=== PATIENT | female | born 1990 | race Caucasian/White ===

== ENCOUNTER 2017-10-21 07:23 | Emergency (ER) | payer OTHER ==
[2017-10-21 07:31] VITALS: BP 134/67
[2017-10-21] MEDS ORDERED: TRAMADOL HCL 50 MG TABLET PO ONE (08:23)
--- NOTE | 2017-10-21 08:31 | ER Document Report ---
ED ENT - General Chief Complaint: Ear Pain Stated Complaint: EAR PAIN/VOMITING Time Seen by Provider: 10/21/17 07:43 Mode of Arrival: Ambulatory Information source: Patient - HPI Patient complains to provider of: Ear problem Onset: This morning Notes: Patient is here with complaints of right ear pain. She states that she woke up this morning with severe right ear pain. She has had a cold for approximately a week now. She complains of mild decreased hearing in the right ear. She states that when she gets up or moves around she has some dizziness has had a few episodes of nausea vomiting as well. Nothing makes the pain better. The pain seems to be worse when she swallows. Pain radiates down into her neck area. She denies any chest pain or shortness of breath. She denies any abdominal pain. She denies any blurred or loss vision. She denies any unilateral numbness, tingling, weakness. No injury to the head or the ear. No ear drainage. No fevers. No rash. No syncope. No blood thinners. She denies any other complaints at this time. - Related Data Allergies/Adverse Reactions: No Known Allergies Allergy (Unverified 10/21/17 07:25) Past Medical History - Social History Smoking Status: Never Smoker Frequency of alcohol use: Occasional Drug Abuse: None Family History: Reviewed & Not Pertinent Patient has suicidal ideation: No Patient has homicidal ideation: No Renal/ Medical History: Denies: Hx Peritoneal Dialysis Past Surgical History: Reports: Hx Section Review of Systems - Review of Systems -: Yes All other systems reviewed and negative Physical Exam - Vital signs Vitals: Temp Pulse Resp BP Pulse Ox 97.7 F 65 18 134/67 H 100 10/21/17 07:30 10/21/17 07:30 10/21/17 07:30 10/21/17 07:30 10/21/17 07:30 - Notes Notes: GENERAL: alert, cooperative, nontoxic, no distress. HEAD: normocephalic, atraumatic EYES: conjunctiva pink without discharge, no external redness or swelling. Pupils are equal, round, reactive to light. EARS: no external swelling, no external redness. Effusion behind the left TM with normal landmarks and no erythema. No perforation. Right TM with large amount of clear fluid with bulging TM. There is no erythema or perforation. Canals are clear with no redness swelling or drainage. Mastoids are normal with no tenderness or redness. NOSE: atraumatic, no external swelling MOUTH/THROAT: mucous membranes moist and pink, posterior pharynx without erythema, swelling, exudate. No trismus or drooling. NECK: soft, supple, full range of motion, no meningismus. CHEST: no distress, lungs clear and equal throughout. No wheezing, rales, rhonchi. CARDIAC: regular rate and rhythm, no murmur, normal capillary refill, normal pulses. No peripheral edema noted. BACK: full range of motion, no CVA tenderness. EXTREMITIES: full range of motion of all extremities. No redness, no swelling. NEURO: alert and oriented x 3, cranial nerves II through XII are grossly intact. Upper and lower extremities are equal throughout. Normal sensation. No focal deficits, full range of motion of all extremities. normal finger to nose. PYSCH: appropriate mood, affect. Patient is cooperative. SKIN: pink, warm, dry, no rash. Course - Re-evaluation Re-evalutation: 10/21/17 08:29 Patient is nontoxic appearing with stable vitals. The patient is here with complaints of right ear pain which started this morning. She has had URI symptoms for about a week now. She has some mild decreased hearing in the right ear. On exam she is noted to have a clear effusion with bulging TM but no redness or signs of infection. Patient is likely experiencing some eustachian tube dysfunction secondary to her URI. She is afebrile. There is no signs of mastoiditis. No sign of malignant otitis externa. She has a nonfocal neurological exam. She is likely experiencing some mild vertigo secondary to her effusion. She has dizziness but only with sudden position changes. She has a normal cerebellar exam. This point the patient will be discharged home with Claritin-D, Flonase, tramadol, Antivert. Follow-up if not improving in the next 3-5 days, sooner for increasing pain, fever, redness, constant dizziness, numbness, tingling, weakness, or for any further concerns. The patient is noted to have elevated blood pressure during today's emergency department visit. The patient was informed of this finding. The patient was instructed that this may be related to pre-hypertension and requires further evaluation with a primary care provider. The patient has no hypertensive symptoms at this time. The patient's emergency department workup and current diagnosis were explained to the patient and or family. Follow-up instructions were provided. Medications if prescribed were discussed. Instructions for when to return to the emergency department including specific worrisome symptoms were discussed with the patient and/or family. - Vital Signs Vital signs: Temp Pulse Resp BP Pulse Ox 97.7 F 65 18 134/67 H 100 10/21/17 07:30 10/21/17 07:30 10/21/17 07:30 10/21/17 07:30 10/21/17 07:30 Discharge - Discharge Clinical Impression: Vertigo Eustachian tube disorder Qualifiers: Laterality: right Qualified Code(s): H69.91 - Unspecified Eustachian tube disorder, right ear Condition: Stable Disposition: HOME, SELF-CARE Instructions: Upper Respiratory Illness ([facility]), Vertigo ([facility]) Additional Instructions: Take medications as prescribed. Drink plenty of fluids. Follow-up if not better in 3-5 days, sooner for increasing pain, fever, redness or swelling around the outside of the ear, severe headache, constant dizziness, numbness, tingling, weakness, any further concerns. Your blood pressure was elevated during today's visit. Have this rechecked with your doctor. The medication you were prescribed today may cause drowsiness. Do not drive or operate heavy machinery while taking this medication. Prescriptions: Fluticasone Propionate [Flonase Nasal [place] 50 Mcg/[place] 16 gm] 1 spray NASL Q12 #1 inhaler Loratadine/Pseudoephedrine Sul [Claritin-D 12 Hour Tablet] 1 each PO BID PRN # 14 tab.sr.12h PRN Reason: Meclizine HCl [Antivert 25 mg Tablet] 25 mg PO TID PRN #21 tablet PRN Reason: Tramadol HCl 50 mg PO TID PRN #10 tablet PRN Reason: Forms: Elevated Blood Pressure, Smoking Cessation Education Referrals: [facility] [Provider Group] - Follow up as needed
== END 2017-10-21 08:49 | disposition home or self-care (01) ==
LOC: ER 07:23
DX: H69.91 Unspecified Eustachian tube disorder, right ear (principal); R42 Dizziness and giddiness; H92.01 Otalgia, right ear; R11.2 Nausea with vomiting, unspecified; J00 Acute nasopharyngitis [common cold]; R03.0 Elevated blood-pressure reading, without diagnosis of hypertension
CPT/HCPCS: 99282

== ENCOUNTER 2017-10-23 20:02 | Emergency (ER) | payer OTHER ==
[2017-10-23 20:14] VITALS: BP 131/70
[2017-10-23] MEDS ORDERED: AMOXICILLIN TRIHYDRATE 500 MG CAPSULE PO ONE (20:34)
[2017-10-23] MEDS ORDERED: NEOMY SULF/POLYMYX B SULF/HC OTIC SUSP 10 ML AU ONE (20:35)
--- NOTE | 2017-10-23 20:40 | ER Document Report ---
ED ENT - General Chief Complaint: Ear Pain Stated Complaint: EAR PAIN Time Seen by Provider: 10/23/17 20:27 Mode of Arrival: Ambulatory Information source: Patient, [facility] Records Notes: This 26-year-old female patient comes emergency room complaining of problems with her ears. She was seen here 2 days ago with a right ear pain and upper respiratory tract infection for the past week. She also at that time had some positional dizziness. Reviewing the chart show she was diagnosed with viral URI and right eustachian tube dysfunction. The patient was put on Claritin-D, Flonase, meclizine and tramadol. She reports waking up yesterday morning feeling a leaking fluid sensation in her right ear and the pain was better. She did notice blood and pus later. Later she noticed the same thing from the left ear with blood and pus. At this time her hearing is decreased in both ears. Patient does admit to using Q-tips to clean both of her ear several times daily all the time suggesting an obsessive-compulsive problem. She admits that when she was cleaning her ears with the current drainage that she would note some blood and pus on the Q-tips. TRAVEL OUTSIDE OF THE [place] IN LAST 30 DAYS: No - Related Data Allergies/Adverse Reactions: No Known Allergies Allergy (Unverified 10/21/17 07:25) Past Medical History - General Information source: Patient, [facility] Records - Social History Smoking Status: Never Smoker Cigarette use (# per day): No Chew tobacco use (# tins/day): No Smoking Education Provided: No Frequency of alcohol use: Occasional Drug Abuse: None Occupation: Dictaphone Operator at [employer] Lives with: Family, Spouse/Significant other Family History: Reviewed & Not Pertinent Patient has suicidal ideation: No Patient has homicidal ideation: No - Medical History Medical History: Negative Past Surgical History: Reports: Hx Section Review of Systems - Review of Systems Constitutional: Other - Has felt hot and cold EENT: Ear pain, Nose congestion Cardiovascular: No symptoms reported Respiratory: Cough Gastrointestinal: No symptoms reported Genitourinary: No symptoms reported Musculoskeletal: No symptoms reported Skin: No symptoms reported Hematologic/Lymphatic: No symptoms reported Neurological/Psychological: No symptoms reported Physical Exam - Vital signs Vitals: Temp Pulse Resp BP Pulse Ox 98.6 F 92 16 131/70 H 96 10/23/17 20:10 10/23/17 20:10 10/23/17 20:10 10/23/17 20:10 10/23/17 20:10 Interpretation: Normal - General General appearance: Appears well, Alert In distress: None - HEENT Head: Normocephalic, Atraumatic Eyes: Normal Pupils: PERRL External canal: Normal Tympanic membrane: Bulging - Left TM is bulging with some erythema. There is no drainage noted at this time., Other - Right TM has erythema with bright red blood flame like areas suggesting small hemorrhages. The TM is a little wrinkled which would be consistent with her description of a TM perforation. There is no drainage noted at this time. - Respiratory Respiratory status: No respiratory distress Breath sounds: Normal - Cardiovascular Rhythm: Regular - Abdominal Inspection: Normal - Back Back: Normal - Extremities General upper extremity: Normal inspection General lower extremity: Normal inspection - Neurological Neuro grossly intact: Yes - Psychological Associated symptoms: Normal affect, Normal mood - Skin Skin Temperature: Warm Skin Moisture: Dry Skin Color: Normal Course - Vital Signs Vital signs: Temp Pulse Resp BP Pulse Ox 98.6 F 92 16 131/70 H 96 10/23/17 20:10 10/23/17 20:10 10/23/17 20:10 10/23/17 20:10 10/23/17 20:10 Discharge - Discharge Clinical Impression: Bilateral otitis media with effusion Condition: Stable Disposition: HOME, SELF-CARE Additional Instructions: Otitis Media You have a middle ear infection (otitis media). This is usually a complication of a cold or sore throat. The middle ear cavity becomes filled with infection. Pressure and stretching of the ear drum cause pain. Antibiotics are required. A 10 day course is usually prescribed. A decongestant may be recommended if you have a "runny nose." You may need anesthetic drops or other pain medication. A follow-up exam may be recommended to make sure the infection has completely cleared. If the ear begins to drain, it means the ear drum has ruptured. This will usually heal spontaneously. However, it means you should keep the ear dry until re-examined by a doctor. Call the physician or return for examination at once if there is severe headache, stiff neck, confusion, increasing fever, or dizziness. You should improve significantly within two days. If you're not better, call the doctor. At this time your left eardrum is bulging and red, the right eardrum is not bulging but there is no drainage from it so the previous perforation may have sealed itself. Take the antibiotics as prescribed. Use the antibiotics eardrops dispensed--place 4 drops in each ear and place a cotton wick 4 times daily. If either ear begins to drain with a bloody discharge as before, continue to use the drops as prescribed, but do not put earwicks in. Instead lay on one side put the drops in and let them stay in the ear for 30 minutes or more before turning to the other side and repeating the process. Follow-up with your primary care provider or a local ENT doctor if not improving. RETURN TO THE EMERGENCY ROOM IF ANY NEW OR WORSENING SYMPTOMS. Prescriptions: Amoxicillin 1 tab PO TID #30 tab
== END 2017-10-23 20:45 | disposition home or self-care (01) ==
LOC: ER 20:02
DX: H65.93 Unspecified nonsuppurative otitis media, bilateral (principal); H92.01 Otalgia, right ear; H92.23 Otorrhagia, bilateral; H91.93 Unspecified hearing loss, bilateral
CPT/HCPCS: 99283; J3490

== ENCOUNTER 2018-06-08 12:26 | Emergency (ER) | payer OTHER ==
--- NOTE | 2018-06-08 13:18 | ER Document Report ---
ED Medical Screen (RME) - General Chief Complaint: Abdominal Pain Stated Complaint: LOWER ABDOMINAL PAIN,VOMITING Time Seen by Provider: 06/08/18 12:33 TRAVEL OUTSIDE OF THE [place] IN LAST 30 DAYS: No - Related Data Allergies/Adverse Reactions: No Known Allergies Allergy (Unverified 10/21/17 07:25) Past Medical History Renal/ Medical History: Denies: Hx Peritoneal Dialysis Past Surgical History: Reports: Hx Section Physical Exam - Vital signs Vitals: Temp Pulse Resp BP Pulse Ox 98.3 F 65 14 130/75 H 100 06/08/18 12:33 06/08/18 12:33 06/08/18 12:33 06/08/18 12:33 06/08/18 12:33 Course - Re-evaluation Re-evalutation: 06/08/18 13:17 27-year-old female presents for evaluation of the lower abdominal pain that sometimes causes her to vomit. Is been persistent and were the last several ounce. 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 We will initiate work with a transvaginal ultrasound as well as urine. We will defer further workup to secondary provider. I have seen and performed a rapid medical screening examination on this patient. This patient will require further evaluation and disposition determination by a secondary provider. - Vital Signs Vital signs: Temp Pulse Resp BP Pulse Ox 98.3 F 65 14 130/75 H 100 06/08/18 12:33 06/08/18 12:33 06/08/18 12:33 06/08/18 12:33 06/08/18 12:33
[2018-06-08 14:05] LABS: APPEARANCE,URINE CLEAR; BILIRUBIN,URINE NEGATIVE (NEGATIVE); COLOR,URINE STRAW; GLUCOSE, URINE NEGATIVE (NEGATIVE); KETONES,URINE TRACE mg/dL (NEGATIVE); LEUKOCYTE ESTERASE,URINE NEGATIVE (NEGATIVE); NITRITE,URINE NEGATIVE (NEGATIVE); PROTEIN,URINE NEGATIVE (NEGATIVE); URINE SPECIFIC GRAVITY 1.005; UROBILINOGEN,URINE NEGATIVE mg/dL (<2.0)
--- NOTE | 2018-06-08 14:25 | RADIOLOGY REPORT (SQ) ---
EXAM DESCRIPTION: U/S NON OB PEL TV W/DOPPLER COMPLETED DATE/TIME: 06/08/2018 2:11 pm REASON FOR STUDY: ovarian cysts and pain LMP 05/27/2018 COMPARISON: None. TECHNIQUE: Dynamic and static grayscale images acquired of the pelvis via transvaginal approach and recorded on PACS. Additional selected color Doppler and spectral images recorded. LIMITATIONS: None. FINDINGS: UTERUS: Contour normal. No mass. ENDOMETRIAL STRIPE: No focal or generalized thickening. No masses. CERVIX: 3.7 cm. No nabothian cysts. RIGHT OVARY AND DOPPLER: Ovary not seen. LEFT OVARY AND DOPPLER: Ovary not seen. FREE FLUID: None noted. OTHER: No other significant finding. MEASUREMENTS: UTERUS: 11.1 x 5.7 x 5.3 cm. ENDOMETRIAL STRIPE: 6 mm. RIGHT OVARY: Ovary not seen. LEFT OVARY: Ovary not seen. IMPRESSION: Normal uterus. The ovaries could not be seen. TECHNICAL DOCUMENTATION: JOB ID: [id number]- All Rights Reserved Rev-11/27 Reading location - IP/workstation name: [email or web address]
[2018-06-08] MEDS ORDERED: DIPHENHYDRAMINE HCL 50 MG/ML VIAL IV ONE (14:44)
[2018-06-08] MEDS ORDERED: PROCHLORPERAZINE EDISYLATE INJ 10 MG/2 ML VIAL IV ONE (14:44)
[2018-06-08] MEDS ORDERED: KETOROLAC TROMETHAMINE INJ/PF 30 MG/1 ML SDV IV ONE (14:44)
[2018-06-08] MEDS ORDERED: NORMAL SALINE 1000 ML 1,000 ML IV ONE (14:45)
--- NOTE | 2018-06-08 14:57 | ER Document Report ---
ED GI/ - General Chief Complaint: Abdominal Pain Stated Complaint: LOWER ABDOMINAL PAIN,VOMITING Time Seen by Provider: 06/08/18 12:33 Mode of Arrival: Ambulatory Information source: Patient Notes: 27-year-old female presented to ED for complaint of extreme lower abdominal pain times a week with nausea times a week vomiting off and on for 3 days 3 times a day. She states she is also had pelvic pain vaginal pain and vaginal discharge. TRAVEL OUTSIDE OF THE [place] IN LAST 30 DAYS: No - HPI Patient complains to provider of: Abdominal pain, Pelvic pain, Vaginal discharge , Vaginal pain Onset: Last week Timing/Duration: Intermittent Quality of pain: Cramping Severity at maximum: Moderate Severity in ED: Moderate Pain Level: 2 Location: LLQ, RLQ, Pelvis, Vaginal Vaginal bleeding (Compared to normal period): None Associated symptoms: Nausea, Odor - Pain lower abdominal pain, Vaginal discharge , Vomiting, Other Exacerbated by: Movement Relieved by: Denies Similar symptoms previously: Yes Recently seen / treated by doctor: No - Related Data Allergies/Adverse Reactions: No Known Allergies Allergy (Unverified 10/21/17 07:25) Past Medical History - General Information source: Patient - Social History Smoking Status: Never Smoker Chew tobacco use (# tins/day): No Smoking Education Provided: No Frequency of alcohol use: Social Drug Abuse: None 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[employer] Lives with: Spouse/Significant other Family History: Reviewed & Not Pertinent Patient has suicidal ideation: No Patient has homicidal ideation: No - Past Medical History Cardiac Medical History: Reports: None Pulmonary Medical History: Reports: None EENT Medical History: Reports: None Neurological Medical History: Reports: None Endocrine Medical History: Reports: None Renal/ Medical History: Reports: Hx Ovarian Cysts Malignancy Medical History: Reports: None GI Medical History: Reports: None Musculoskeletal Medical History: Reports None Skin Medical History: Reports None Psychiatric Medical History: Reports: None Traumatic Medical History: Reports: None Infectious Medical History: Reports: None Past Surgical History: Reports: Hx Section - Immunizations Immunizations up to date: Yes Hx Diphtheria, Pertussis, Tetanus Vaccination: Yes Review of Systems - Review of Systems Notes: REVIEW OF SYSTEMS: CONSTITUTIONAL : Denies fever, chills, or sweats. Denies recent illness. EENT: Denies eye, ear, throat, or mouth pain or symptoms. Denies nasal or sinus congestion or discharge. Denies throat, tongue, or mouth swelling or difficulty swallowing. CARDIOVASCULAR: Denies chest pain. Denies palpitations or racing or irregular heart beat. Denies ankle edema. RESPIRATORY: Denies cough, cold, or chest congestion. Denies shortness of breath, difficulty breathing, or wheezing. GASTROINTESTINAL: Complains of bilateral lower abdominal pain pelvic pain vaginal pain nausea and vomiting but no diarrhea. States she has been having normal bowel movements 1 or 2 a day. She states this is been going on for a week. Denies blood in vomitus, stools, or per rectum. Denies black, tarry stools. Denies constipation. GENITOURINARY: Denies difficulty urinating, painful urination, burning, frequency, blood in urine, or discharge. FEMALE GENITOURINARY: Patient complains of vaginal discharge with odor pelvic pain and lower abdominal pain MUSCULOSKELETAL: Denies back or neck pain or stiffness. Denies joint pain or swelling. SKIN: Denies rash, lesions or sores. HEMATOLOGIC : Denies easy bruising or bleeding. LYMPHATIC: Denies swollen, enlarged glands. NEUROLOGICAL: Denies confusion or altered mental status. Denies passing out or loss of consciousness. Denies dizziness or lightheadedness. Denies headache. Denies weakness or paralysis or loss of use of either side. Denies problems with gait or speech. Denies sensory loss, numbness, or tingling. Denies seizures. PHYSICAL EXAMINATION: GENERAL: Well-appearing, well-nourished and in no acute distress. HEAD: Atraumatic, normocephalic. EYES: Pupils equal round and reactive to light, extraocular movements intact, conjunctiva are normal. ENT: Nares patent, oropharynx clear without exudates. Moist mucous membranes. NECK: Normal range of motion, supple without lymphadenopathy LUNGS: Breath sounds clear to auscultation bilaterally and equal. No wheezes rales or rhonchi. HEART: Regular rate and rhythm without murmurs ABDOMEN: Soft, tender bilateral left and right lower abdominal pain nondistended abdomen. No guarding, no rebound. No masses appreciated. Female : Tenderness to the left pelvic area mild whitish yellow vaginal discharge. Musculoskeletal: Normal range of motion, no pitting or edema. No cyanosis. NEUROLOGICAL: Cranial nerves grossly intact. Normal speech, normal gait. Normal sensory, motor exams PSYCH: Normal mood, normal affect. SKIN: Warm, Dry, normal turgor, no rashes or lesions noted. PSYCHIATRIC: Denies anxiety or stress. Denies depression, suicidal ideation, or homicidal ideation. ALL OTHER SYSTEMS REVIEWED AND NEGATIVE. Dictation was performed using [employer] voice recognition software Physical Exam - Vital signs Vitals: Temp Pulse Resp BP Pulse Ox 98.3 F 65 14 130/75 H 100 06/08/18 12:33 06/08/18 12:33 06/08/18 12:33 06/08/18 12:33 06/08/18 12:33 Course - Vital Signs Vital signs: Temp Pulse Resp BP Pulse Ox 98.1 F 76 18 123/65 99 06/08/18 16:05 06/08/18 16:05 06/08/18 16:05 06/08/18 16:05 06/08/18 16:05 - Laboratory Result Diagrams: 06/08/18 15:04 06/08/18 15:04 Laboratory results interpreted by me: 06/08/18 06/08/18 13:31 15:04 Albumin 5.1 H Urine Ketones TRACE H Urine Blood MODERATE H Discharge - Discharge Clinical Impression: Abdominal pain Qualifiers: Abdominal location: lower abdomen, unspecified Qualified Code(s): R10.30 - Lower abdominal pain, unspecified Nausea and vomiting Qualifiers: Vomiting type: unspecified Vomiting Intractability: non-intractable Qualified Code(s): R11.2 - Nausea with vomiting, unspecified Head ache Qualifiers: Headache type: unspecified Headache chronicity pattern: unspecified pattern Intractability: not intractable Qualified Code(s): R51 - Headache Condition: Stable Disposition: HOME, SELF-CARE Instructions: Family Physicians / Practices Additional Instructions: ABDOMINAL PAIN: There are many causes of abdominal pain. Pain can mean a serious problem requiring surgery (such as appendicitis). It can also be an innocent problem that goes away on its own (such as a viral infection). Often, time must pass to determine the cause of pain. The physician does not feel that hospitalization is necessary, at present. Things may change within the next 24 hours. Call the doctor or come back for re- examination if any problems occur, such as: (1) Pain that becomes more severe, steady, or becomes concentrated in one specific area. Also, pain that is more severe with movement or coughing. (2) Vomiting that persists or becomes more frequent. (3) Blood in the vomitus, urine, or bowel movements. Blood in the stool may have a tarry or black appearance. (4) Shaking chills or fever greater than 100 degrees F. (5) The abdomen becomes more distended or swollen. (6) Bowel movements cease. (7) Failure to improve as expected. VOMITING: Vomiting (or nausea without vomiting) can be caused by many other different problems. It can mean that something's wrong with the stomach, such as ulcers or inflammation or the intestinal tract, such as appendicitis. But it can also be a symptom of a problem that has nothing to do with the stomach or intestines. Vomiting is common with severe headaches, earaches, tonsillitis, and kidney infections, etc. We see it with pneumonia or heart attacks. Drugs can cause nausea and vomiting. Many abdominal problems cause vomiting; for example, gallstones, kidney stones, pancreatitis, and intestinal obstruction ( blocked bowels). In most cases, curing the vomiting depends on fixing the problem that caused it. For temporary relief, we may use an anti-nausea medicine. For home use, we can prescribe suppositories, chewable pills, pills that dissolve in the mouth, or liquid anti-nausea drugs. If the vomiting seems to be caused by a problem in the stomach, acid-suppressing drugs may be prescribed as well. It's important to avoid dehydration. Sip small amounts of clear liquids ( soft drinks, tea, broth, etc) . Try to take fluids frequently even if you are vomiting to prevent dehydration. Take increasing amounts of fluid and when liquids are being consumed successfully, advance to small amounts of bland food (toast, soups, mashed potatoes, etc.) until you are able to resume a regular diet. Avoid aspirin, tobacco, and alcohol. If the vomiting worsens, if the problem that's making you vomit worsens, or if there's evidence of bleeding in the stomach (such as black, tarry stool, or bloody or black vomit), you should return immediately. Also, return if abdominal pain worsens or becomes localized to one area or you develop high fever. Call your doctor if you aren't improved in 24 hours. HEADACHE: The physician does not feel that the headache you are experiencing has a serious underlying cause. Most headaches are due to emotional stress, with resultant muscle tension (tension headache). Occasionally, headaches are secondary to changes in the blood vessels of the scalp (vascular headache and migraine headache). Sometimes, a headache is the first symptom of another developing illness, such as a viral infection. You have no evidence of stroke, bleeding, meningitis, or other serious cause of your headache. The treatment of headaches varies with the severity and cause of the pain. Not all headaches need pain shots. In fact, there is evidence that using narcotics for headaches may make them worse in the long run. The physician will determine the therapy that's in your best interest. If you develop a fever, if the headache is different from any you've previously experienced, or if the headache progressively worsens, then call your physician at once or go to the emergency room. USE OF DIPHENHYDRAMINE: Diphenhydramine (Benadryl) is an antihistamine and has been recommended to help treat your headache and to prevent side effects of other medications used to treat headaches. The medication can be repeated four times daily. Age Elixir (12.5 mg/tsp) 25 mg pill adult 1-2 tabs Antihistamines may cause drowsiness, especially with the first dose. Do not operate machinery or drive while under the effects of the medication. Do not combine the medication with alcohol, or with any other medication without talking to your doctor. ANTINAUSEA MEDICATION: You have been given a medication to suppress nausea and vomiting. This type of medication can be given as a shot, pill, or suppository. It will usually last for many hours. Pills and shots usually last six to eight hours, suppositories last about 12 hours. For the typical illness, only one or two doses of the medication may be necessary. Mild lightheadedness may occur. This type of medicine can cause drowsiness. Do not drive or operate dangerous machinery while under its influence. Do not mix with alcohol. See your doctor at once if you have muscle spasms or tightness, or uncontrollable motions (particularly of the neck, mouth, or jaw). Persistent vomiting or severe lightheadedness should also be evaluated by the physician. COMPAZINE FOR HEADACHE: You have a prescription for Compazine Compazine. This treatment is dramatically successful in relieving the headache in about 50 percent of cases. When it works, it provides a rapid method of eliminating the headache without resorting to narcotics (and the problems associated with them). Most patients still feel fully alert after the Compazine, but others may be slightly drowsy. It's best not to drive or work with machinery for six to eight hours. Do not take alcohol or other medication unless you discuss it with the doctor. If you develop tightness and spasms in your muscles, especially the neck and tongue, you should return. This is a side effect which can be treated. TORADOL INJECTION: You have been given an injection of ketorolac tromethamine (Toradol). This is an excellent, safe drug for pain control. It also has potent antiinflammatory action. You should have significant pain relief within about one hour. Toradol is not addicting and is non-sedating. It does not interfere with driving or work. Call or return if you develop itching, hives, shortness of breath, or rash. VIRAL SYNDROME: The physician has diagnosed a viral infection. Viruses not only cause "colds," but can cause many different symptoms including generalized aching, fever, headache, cough, diarrhea, nausea, vomiting, and fatigue. The treatment, for the most part, is simply relief of symptoms. This means that antibiotics are usually not given. Rest, fluids, pain medications and, occasionally, medication for the specific symptoms that are most bothersome will be prescribed. Use good handwashing to avoid passing the virus to others. Shared toys should be cleaned with disinfectant. Clean the toilets, sinks, and counter surfaces in bathrooms. Launder clothing in hot water. Contact the physician if you develop any new or unusual symptoms such as severe headache, stiff neck, high fever, chest pain, productive cough, or shortness of breath. You should be rechecked if you don't see marked improvement within seven to 10 days. INTRAVENOUS (I V) FLUIDS: As part of your care today, you received intravenous (IV) fluids. IV fluids are administered to patients who are dehydrated or to those who have certain chemical (electrolyte) abnormalities that need correcting. FOLLOW-UP CARE: If you have been referred to a physician for follow-up care, call the physician s office for an appointment as you were instructed or within the next two days. If you experience worsening or a significant change in your symptoms, notify the physician immediately or return to the Emergency Department at any time for re-evaluation. Prescriptions: Prochlorperazine Maleate [Compazine 10 mg Tablet] 10 mg PO Q6HP PRN #10 tablet PRN Reason: Forms: Elevated Blood Pressure Referrals: [facility] [Provider Group] - Follow up as needed
[2018-06-08] MEDS ORDERED: AZITHROMYCIN 250 MG TABLET PO ONE (15:03)
[2018-06-08] MEDS ORDERED: LIDOCAINE 1% INJ-PF (10 MG/ML) 30 ML SDV INJ ONE (15:03)
[2018-06-08] MEDS ORDERED: CEFTRIAXONE INJ 250 MG VIAL IM ONE (15:03)
[2018-06-08 15:05] LABS: EPITHELIALS (WET MOUNT) 3+ EPITHELIALS SEEN; RBCS (WET MOUNT) RARE RBCS SEEN; T.VAGINALIS (WET MOUNT) NO TRICHOMONAS SEEN; WBCS (WET MOUNT) FEW WBCS SEEN; YEAST (WET MOUNT) NO YEAST SEEN
[2018-06-08 15:22] LABS: ABSOLUTE EOSINOPHILS # (AUTO) 0.1 10^3/uL (0.0-0.6); ABSOLUTE LYMPHOCYTES (AUTO) 2.4 10^3/uL (0.5-4.7); ABSOLUTE MONOCYTES (AUTO) 0.3 10^3/uL (0.1-1.4); ABSOLUTE NEUT (AUTO) 5.5 10^3/uL (1.7-8.2); BASOPHILS % (AUTO) 0.5 % (0-2); EOSINOPHILS % (AUTO) 0.8 % (0-6); HEMATOCRIT 41.2 % (36.0-47.0); HEMOGLOBIN 14.2 g/dL (12.0-15.5); MEAN CORPUSCULAR HEMOGLOBIN 30.5 pg (27.0-33.4); MEAN CORPUSCULAR HGB CONC 34.6 g/dL (32.0-36.0); MEAN CORPUSCULAR VOLUME 88 fl (80-97); PLATELET COUNT 301 10^3/uL (150-450); RED BLOOD COUNT 4.67 10^6/uL (3.72-5.28); SEGMENTED NEUTROPHILS % (AUTO) 65.7 % (42-78); TOTAL CELLS COUNTED % (AUTO) 100 %; WHITE BLOOD COUNT 8.3 10^3/uL (4.0-10.5)
[2018-06-08 15:38] LABS: ALANINE AMINOTRANSFERASE 21 U/L (9-52); ALBUMIN 5.1 g/dL (3.5-5.0); ALKALINE PHOSPHATASE 41 U/L (38-126); ANION GAP 13 (5-19); ASPARTATE AMINO TRANSFERASE 24 U/L (14-36); BILIRUBIN,DIRECT 0.3 mg/dL (0.0-0.4); BILIRUBIN,TOTAL 1.3 mg/dL (0.2-1.3); BLOOD UREA NITROGEN 13 mg/dL (7-20); CALCIUM 10.2 mg/dL (8.4-10.2); CARBON DIOXIDE 25 mmol/L (22-30); CHLORIDE 103 mmol/L (98-107); GLUCOSE 88 mg/dL (75-110); POTASSIUM 4.3 mmol/L (3.6-5.0); SODIUM 140.7 mmol/L (137-145); TOTAL PROTEIN 8.1 g/dL (6.3-8.2)
[2018-06-08 16:08] VITALS: BP 123/65
[2018-06-08 16:33] LABS: CHLAM PCR NOT DETECTED (NOT DETECT); GON PCR NOT DETECTED (NOT DETECT)
== END 2018-06-08 16:07 | disposition home or self-care (01) ==
LOC: ER 12:26
DX: R10.30 Lower abdominal pain, unspecified (principal); R11.2 Nausea with vomiting, unspecified; R51 Headache; R10.2 Pelvic and perineal pain; N89.8 Other specified noninflammatory disorders of vagina
CPT/HCPCS: 99284; 96372; 96361; 96374; 36415; 87086; 87210; 85025; 81025; 80053; 81001; 87491; 87591; 76830; 93976; J3490; J1885; J7030; J0696

== ENCOUNTER 2019-01-19 12:21 | Emergency (ER) | payer SELFPAY ==
[2019-01-19] MEDS ORDERED: NORMAL SALINE 1000 ML 1,000 ML IV ONE ×2 (13:00→14:55)
[2019-01-19] MEDS ORDERED: ONDANSETRON HCL INJ/PF 4 MG/2 ML SDV IV ONE (13:00)
--- NOTE | 2019-01-19 13:02 | ER Document Report ---
ED Medical Screen (RME) - General Chief Complaint: Nausea/Vomiting Stated Complaint: VOMITING Time Seen by Provider: 01/19/19 12:57 Mode of Arrival: Ambulatory Information source: Patient Notes: Patient is a 28-year-old female presented to the emergency department with several week history of vomiting worsening over the last 48 hours. Patient also reports abnormal vaginal bleeding. 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 She is a G7, P1. Patient denies any fevers, chills or dysuria. Exam: Tenderness to palpation to the right and left lower quadrants. Exam limited by patient position. I have greeted and performed a rapid initial assessment of this patient. A comprehensive ED assessment and evaluation of the patient, analysis of test results and completion of the medical decision making process will be conducted by additional ED providers. I have specifically instructed the patient or family members with the patient to immediately return to any nursing staff should anything change in the patient's condition or with their chief complaint. This medical record was dictated with voice recognizing software. There may be grammatical, syntax errors that are unintended. TRAVEL OUTSIDE OF THE [place] IN LAST 30 DAYS: No - Related Data Allergies/Adverse Reactions: No Known Allergies Allergy (Verified 01/19/19 12:23) Past Medical History Renal/ Medical History: Reports: Hx Ovarian Cysts. Denies: Hx Peritoneal Dialysis Past Surgical History: Reports: Hx Section - Immunizations Immunizations up to date: Yes Hx Diphtheria, Pertussis, Tetanus Vaccination: Yes Physical Exam - Vital signs Vitals: Temp Pulse Resp BP Pulse Ox 98.1 F 59 L 18 127/72 H 100 01/19/19 12:52 01/19/19 12:52 01/19/19 12:52 01/19/19 12:52 01/19/19 12:52 Course - Vital Signs Vital signs: Temp Pulse Resp BP Pulse Ox 98.1 F 59 L 18 127/72 H 100 01/19/19 12:52 01/19/19 12:52 01/19/19 12:52 01/19/19 12:52 01/19/19 12:52
[2019-01-19 13:26] LABS: ABSOLUTE EOSINOPHILS # (AUTO) 0.1 10^3/uL (0.0-0.6); ABSOLUTE LYMPHOCYTES (AUTO) 2.1 10^3/uL (0.5-4.7); ABSOLUTE MONOCYTES (AUTO) 0.4 10^3/uL (0.1-1.4); ABSOLUTE NEUT (AUTO) 7.5 10^3/uL (1.7-8.2); BASOPHILS % (AUTO) 0.4 % (0-2); EOSINOPHILS % (AUTO) 0.8 % (0-6); HEMATOCRIT 43.3 % (36.0-47.0); HEMOGLOBIN 14.8 g/dL (12.0-15.5); MEAN CORPUSCULAR HEMOGLOBIN 30.7 pg (27.0-33.4); MEAN CORPUSCULAR HGB CONC 34.3 g/dL (32.0-36.0); MEAN CORPUSCULAR VOLUME 90 fl (80-97); MONOCYTES % (AUTO) 3.9 % (3-13); PLATELET COUNT 317 10^3/uL (150-450); RED BLOOD COUNT 4.84 10^6/uL (3.72-5.28); RED CELL DISTRIBUTION WIDTH 13.7 % (11.5-14.0); SEGMENTED NEUTROPHILS % (AUTO) 73.9 % (42-78); TOTAL CELLS COUNTED % (AUTO) 100 %; WHITE BLOOD COUNT 10.2 10^3/uL (4.0-10.5)
[2019-01-19 13:28] LABS: APPEARANCE,URINE SLIGHTLY-CLOUDY; BILIRUBIN,URINE NEGATIVE (NEGATIVE); COLOR,URINE YELLOW; GLUCOSE, URINE NEGATIVE (NEGATIVE); KETONES,URINE 80 mg/dL (NEGATIVE); LEUKOCYTE ESTERASE,URINE NEGATIVE (NEGATIVE); NITRITE,URINE NEGATIVE (NEGATIVE); PROTEIN,URINE NEGATIVE (NEGATIVE); UROBILINOGEN,URINE NEGATIVE mg/dL (<2.0)
[2019-01-19 13:51] LABS: ALANINE AMINOTRANSFERASE 18 U/L (9-52); ALBUMIN 5.2 g/dL (3.5-5.0); ALKALINE PHOSPHATASE 41 U/L (38-126); ANION GAP 10 (5-19); ASPARTATE AMINO TRANSFERASE 29 U/L (14-36); BILIRUBIN,DIRECT 0.3 mg/dL (0.0-0.4); BLOOD UREA NITROGEN 15 mg/dL (7-20); CALCIUM 9.6 mg/dL (8.4-10.2); CARBON DIOXIDE 27 mmol/L (22-30); CHLORIDE 102 mmol/L (98-107); GLUCOSE 89 mg/dL (75-110); LIPASE 35.3 U/L (23-300); POTASSIUM 3.7 mmol/L (3.6-5.0); TOTAL PROTEIN 8.5 g/dL (6.3-8.2)
--- NOTE | 2019-01-19 14:42 | ER Document Report ---
ED General - General Chief Complaint: Nausea/Vomiting Stated Complaint: VOMITING Time Seen by Provider: 01/19/19 12:57 Mode of Arrival: Ambulatory TRAVEL OUTSIDE OF THE [place] IN LAST 30 DAYS: No - HPI Notes: 28-year-old female to the emergency department with complaints of nausea and vomiting that has gotten progressively worse over the past 2 to 3 days with associated vaginal bleeding for the past month. States that she has had trouble with nausea and vomiting for some time now, approximately several months, but she has never had persistent vomiting like now. Denies blood in her vomit. Denies increased vomiting with eating. Denies fevers, chills, diarrhea, chest pain, shortness of breath, flank pain, dysuria, vaginal discharge. She does admit to pelvic pain. The pelvic pain has been ongoing for some time - well over a month. She admits to generalized weakness but denies any syncope. She is a G7, P1. 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 She has not been seen or evaluated for these recurrent miscarriages by [facility]. She does have a history of ovarian cysts. There is also a strong family history of ovarian cancer and breast cancer in her maternal grandmother and mother. - Related Data Allergies/Adverse Reactions: No Known Allergies Allergy (Verified 01/19/19 12:23) Past Medical History - General Information source: Patient - Social History Smoking Status: Never Smoker Chew tobacco use (# tins/day): No Frequency of alcohol use: Occasional Drug Abuse: None Family History: Reviewed & Not Pertinent, Malignancy - Ovarian and breast cancer Patient has suicidal ideation: No Patient has homicidal ideation: No Renal/ Medical History: Reports: Hx Ovarian Cysts. Denies: Hx Peritoneal Dialysis Past Surgical History: Reports: Hx Section - Immunizations Immunizations up to date: Yes Hx Diphtheria, Pertussis, Tetanus Vaccination: Yes Review of Systems - Review of Systems Constitutional: denies: Chills, Fever EENT: No symptoms reported Cardiovascular: denies: Chest pain, Dyspnea, Syncope, Dizziness, Lightheaded Respiratory: denies: Cough, Short of breath Gastrointestinal: Abdominal pain, Nausea, Vomiting. denies: Diarrhea Genitourinary: denies: Dysuria, Flank pain, Incontinence, Urgency Female Genitourinary: Heavy/abnormal periods, Irregular period, Vaginal bleeding. denies: , Vaginal discharge, Vaginal odor, Painful intercourse Musculoskeletal: No symptoms reported Skin: No symptoms reported Neurological/Psychological: No symptoms reported -: Yes All other systems reviewed and negative Physical Exam - Vital signs Vitals: Temp Pulse Resp BP Pulse Ox 98.1 F 59 L 18 127/72 H 100 01/19/19 12:52 01/19/19 12:52 01/19/19 12:52 01/19/19 12:52 01/19/19 12:52 - General General appearance: Other - Leaned over an emesis bag but not currently vomiting In distress: None Notes: Patient states that she is still nauseated despite Zofran given by triage provider - HEENT Head: Normocephalic, Atraumatic Eyes: Normal Pupils: PERRL - Respiratory Respiratory status: No respiratory distress Chest status: Nontender Breath sounds: Normal Chest palpation: Normal - Cardiovascular Rhythm: Regular Heart sounds: Normal auscultation Murmur: No - Abdominal Inspection: Normal Distension: No distension Bowel sounds: Normal Tenderness: Tender - Mild discomfort with palpation to bilateral pelvic region. No McBurney's point, no Anglin sign, no guarding, no rebound. No: McBurney's point, Anglin's sign, Guarding, Rebound Organomegaly: No organomegaly - Back Back: No: CVA tenderness - Neurological Neuro grossly intact: Yes Cognition: Normal Orientation: AAOx4 Joss Coma Scale Eye Opening: Spontaneous Mulino Coma Scale Verbal: Oriented Mulino Coma Scale Motor: Obeys Commands Joss Coma Scale Total: 15 Speech: Normal Motor strength normal: LUE, RUE, LLE, RLE Sensory: Normal - Psychological Associated symptoms: Normal affect, Normal mood - Skin Skin Temperature: Warm Skin Moisture: Dry Skin Color: Normal Course - Re-evaluation Re-evalutation: 01/19/19 16:13 Rounded on patient. She feels much better after Phenergan. She has been tolerating a Becky mist without any further incident and she is feeling better. Her labs are very reassuringshe has no leukocytosis, is not anemic, electrolytes are within normal limits, kidney function is well-maintained, her abdominal re-exam is soft and nontender. Think that she needs emergent imaging today. Do think that she needs to be seen by [facility] OPERATOR for further management of her dysfunctional uterine bleeding and chronic pelvic pain. We will also have her follow-up with primary care. Patient agrees with the plan. Impression: Nausea and vomiting, pelvic pain, dysfunctional uterine bleeding. Will follow the treatment plan as outlined above. Sent home with antiemetics. Urged to return if any worsening and intractable nausea and vomiting, worsening pain, fevers, chest pain, shortness of breath, syncope. Patient agrees with the plan - Vital Signs Vital signs: Temp Pulse Resp BP Pulse Ox 98.1 F 59 L 18 127/72 H 100 01/19/19 12:52 01/19/19 12:52 01/19/19 12:52 01/19/19 12:52 01/19/19 12:52 - Laboratory Result Diagrams: 01/19/19 13:10 01/19/19 13:10 Laboratory results interpreted by me: 01/19/19 01/19/19 13:10 13:10 Total Protein 8.5 H Albumin 5.2 H Urine Ketones 80 H Urine Blood MODERATE H Procedures - Pelvic Exam Pelvic exam Time completed: 15:30 Cultures obtained: Yes Wet prep obtained: Yes Herpes culture obtained: No Foreign body removed: No Bimanual exam performed: Yes - no CMT or Adnexal TTP, no adnexal masses or uterine enlargement. Witnessed by: CURLY Mccartney Notes: 01/19/19 16:13 On speculum exam there is no active vaginal bleeding. The cervix is closed. There is no trauma or growth in the vaginal canal. Discharge - Discharge Clinical Impression: Nausea & vomiting, Pelvic pain, Dysfunctional uterine bleeding Condition: Stable Disposition: HOME, SELF-CARE Instructions: Vomiting ([facility]), Dysfunctional Uterine Bleeding ([facility]) Additional Instructions: VOMITING: Vomiting (or nausea without vomiting) can be caused by many other different problems. It can mean that something's wrong with the stomach, such as ulcers or inflammation or the intestinal tract, such as appendicitis. But it can also be a symptom of a problem that has nothing to do with the stomach or intestines. Vomiting is common with severe headaches, earaches, tonsillitis, and kidney infections, etc. We see it with pneumonia or heart attacks. Drugs can cause nausea and vomiting. Many abdominal problems cause vomiting; for example, gallstones, kidney stones, pancreatitis, and intestinal obstruction (blocked bowels). In most cases, curing the vomiting depends on fixing the problem that caused it. For temporary relief, we may use an anti-nausea medicine. For home use, we can prescribe suppositories, chewable pills, pills that dissolve in the mouth, or liquid anti-nausea drugs. If the vomiting seems to be caused by a problem in the stomach, acid-suppressing drugs may be prescribed as well. It's important to avoid dehydration. Sip small amounts of clear liquids (soft drinks, tea, broth, etc) . Try to take fluids frequently even if you are vomiting to prevent dehydration. Take increasing amounts of fluid and when liquids are being consumed successfully, advance to small amounts of bland food (toast, soups, mashed potatoes, etc.) until you are able to resume a regular diet. Avoid aspirin, tobacco, and alcohol. If the vomiting worsens, if the problem that's making you vomit worsens, or if there's evidence of bleeding in the stomach (such as black, tarry stool, or bloody or black vomit), you should return immediately. Also, return if abdominal pain worsens or becomes localized to one area or you develop high fever. Call your doctor if you aren't improved in 24 hours. INTRAVENOUS (I V) FLUIDS: As part of your care today, you received intravenous (IV) fluids. IV fluids are administered to patients who are dehydrated or to those who have certain chemical (electrolyte) abnormalities that need correcting. ANTINAUSEA MEDICATION: You have been given a medication to suppress nausea and vomiting. This type of medication can be given as a shot, pill, or suppository. It will usually last for many hours. Pills and shots usually last six to eight hours. For the typical illness, only one or two doses of the medication may be necessary. Mild lightheadedness may occur. This type of medicine can cause drowsiness. Do not drive or operate dangerous machinery while under its influence. Do not mix with alcohol. See your doctor at once if you have muscle spasms or tightness, or uncontrollable motions (particularly of the neck, mouth, or jaw). Persistent vomiting or severe lightheadedness should also be evaluated by the physician. VAGINAL BLEEDING: You are having an episode of abnormal bleeding. Causes of abnormal vaginal bleeding can include miscarriage or tubal , tumors such as cancer or benign fibroids, medication effects, or hormone imbalance. Testing can eliminate unsuspected , tumors, or infection as a cause. "Dysfunctional uterine bleeding" is due to hormone imbalance, and is especially common at times when the normal cycle is disturbed -- whether by recent , use of control pills or hormones, or impending menopause. If the bleeding is innocent, most commonly a short course of hormones is given to restore the uterus to normal. Sometimes, the normal menstrual cycle corrects itself naturally. Sometimes, brief hormone therapy, or even a D&C is required. Your physician will advise you. Treatment for anemia may be required if bleeding is severe. You should rest and avoid intercourse until the bleeding is controlled. Call the doctor or return for re-examination if you feel faint, have increasing pain, or have a major increase in the amount of bleeding. NORMAL EXAM AND WORKUP: At this time, except for vaginal bleeding, your examination and workup show no significant abnormality. No significant abnormal physical findings were noted. All laboratory studies that were ordered show no significant abno rmality. Although your examination and all studies that were ordered showed no significant abnormal finding, there are no examinations and no studies that are 100% accurate. There is always the possibility that some abnormality could exist and not be detected with physical examination or within the limits and capabilities of laboratory and other studies. You should return or follow up as you were instructed on your visit today for further evaluation if your symptoms do not resolve. FOLLOW-UP CARE: FOLLOW-UP CARE: If you have been referred to a physician for follow-up care, call the physicians office for an appointment as you were instructed or within the next two days. If you experience worsening or a significant change in your symptoms (very heavy bleeding with large clots of blood, passage of tissue, more severe abdominal / pelvic pain or cramping, feeling faint or severe weakness, fever, etc.), notify the physician immediately or return to the Emergency Department at any time for re-evaluation. If you have been referred to a physician for follow- up care, call the physicians office for an appointment as you were instructed or within the next two days. If you experience worsening or a significant change in your symptoms, notify the physician immediately or return to the Emergency Department at any time for re-evaluation. OBSTETRIC-GYNECOLOGIC (OB-[facility]) PHYSICIANS IN [place]: [facility] [address] [place], [place] [phone] [facility] [address] [place] [address] [phone] Prescriptions: Promethazine HCl [Phenergan 25 mg Tablet] 25 mg PO Q6H #10 tablet Referrals: NAYA LLOYD MD [ACTIVE STAFF] - Follow up in 3-5 days (FOR OBGYN follow up)
[2019-01-19] MEDS ORDERED: PROMETHAZINE HCL INJ 25 MG/1 ML VIAL IV ONE (14:55)
[2019-01-19 15:54] LABS: T.VAGINALIS (WET MOUNT) NO TRICHOMONAS SEEN
[2019-01-19 15:55] LABS: WBCS (WET MOUNT) RARE WBCS SEEN; YEAST (WET MOUNT) BUDDING YEAST SEEN
[2019-01-19 17:06] LABS: CHLAM PCR NOT DETECTED (NOT DETECT)
[2019-01-19 17:27] VITALS: BP 106/60
== END 2019-01-19 17:27 | disposition home or self-care (01) ==
LOC: ER 12:21
DX: R11.2 Nausea with vomiting, unspecified (principal); N93.8 Other specified abnormal uterine and vaginal bleeding; R10.2 Pelvic and perineal pain
CPT/HCPCS: 99284; 96361; 96374; 96375; 36415; 87210; 83690; 85025; 81025; 80053; 81001; 87491; 87591; J2550; J2405; J7030

== ENCOUNTER 2019-05-30 12:32 | Emergency (ER) | payer MEDICAID, OTHER ==
[2019-05-30] MEDS ORDERED: NORMAL SALINE 1000 ML 1,000 ML IV ONE (12:48)
[2019-05-30] MEDS ORDERED: METOCLOPRAMIDE HCL INJ/PF 10 MG/2 ML SDV IV ONE (12:48)
--- NOTE | 2019-05-30 12:51 | ER Document Report ---
ED Medical Screen (RME) - General Chief Complaint: Vomiting Stated Complaint: VOMITING Time Seen by Provider: 05/30/19 12:42 Notes: Patient is a G7, P1 28-year-old female presents to the emergency department with a chief complaint of vomiting. Patient states that for the past week she has not been able to eat any solid foods. She states that she only can tolerate sips of brian isaiah. Patient is 10 weeks . She has had miscarriages in the past. She denies any vaginal bleeding or discharge. Last menstrual cycle was March 16. Patient states that she has some cramping in her lower abdomen, but states that she thinks it is from vomiting. Exam: Soft nontender abdomen. I have greeted and performed a rapid initial assessment of this patient. A comprehensive ED assessment and evaluation of the patient, analysis of test res ults and completion of medical decision making process will be conducted by an additional ED providers. TRAVEL OUTSIDE OF THE [place] IN LAST 30 DAYS: No - Related Data Allergies/Adverse Reactions: No Known Allergies Allergy (Verified 01/19/19 12:23) Past Medical History - Social History Frequency of alcohol use: None Drug Abuse: None Renal/ Medical History: Reports: Hx Ovarian Cysts. Denies: Hx Peritoneal Dialysis Past Surgical History: Reports: Hx Section - Immunizations Immunizations up to date: Yes Hx Diphtheria, Pertussis, Tetanus Vaccination: Yes Physical Exam - Vital signs Vitals: Temp Pulse BP Pulse Ox 97.7 F 69 128/51 H 100 05/30/19 12:36 05/30/19 12:36 05/30/19 12:36 05/30/19 12:36 Course - Vital Signs Vital signs: Temp Pulse Resp BP Pulse Ox 97.7 F 69 128/51 H 100 05/30/19 12:36 05/30/19 12:36 05/30/19 12:36 05/30/19 12:36
[2019-05-30] MEDS ORDERED: METOCLOPRAMIDE HCL 10 MG TABLET PO ONE (13:24)
[2019-05-30 13:44] LABS: ABSOLUTE EOSINOPHILS # (AUTO) 0.3 10^3/uL (0.0-0.6); ABSOLUTE LYMPHOCYTES (AUTO) 2.3 10^3/uL (0.5-4.7); ABSOLUTE MONOCYTES (AUTO) 0.5 10^3/uL (0.1-1.4); ABSOLUTE NEUT (AUTO) 9.2 10^3/uL (1.7-8.2); BASOPHILS % (AUTO) 0.3 % (0-2); LYMPHOCYTES % (AUTO) 18.5 % (13-45); MEAN CORPUSCULAR VOLUME 89 fl (80-97); MONOCYTES % (AUTO) 4.2 % (3-13); PLATELET COUNT 296 10^3/uL (150-450); RED BLOOD COUNT 4.51 10^6/uL (3.72-5.28); RED CELL DISTRIBUTION WIDTH 13.4 % (11.5-14.0); TOTAL CELLS COUNTED % (AUTO) 100 %; WHITE BLOOD COUNT 12.3 10^3/uL (4.0-10.5)
[2019-05-30 13:49] LABS: APPEARANCE,URINE CLOUDY; BILIRUBIN,URINE NEGATIVE (NEGATIVE); COLOR,URINE YELLOW; GLUCOSE, URINE NEGATIVE (NEGATIVE); KETONES,URINE 80 mg/dL (NEGATIVE); PROTEIN,URINE 30 mg/dL (NEGATIVE); URINE SPECIFIC GRAVITY 1.028; UROBILINOGEN,URINE NEGATIVE mg/dL (<2.0)
[2019-05-30 14:12] LABS: ALBUMIN 4.7 g/dL (3.5-5.0); ALKALINE PHOSPHATASE 36 U/L (38-126); ANION GAP 11 (5-19); ASPARTATE AMINO TRANSFERASE 22 U/L (14-36); BILIRUBIN,DIRECT 0.1 mg/dL (0.0-0.4); BILIRUBIN,TOTAL 0.6 mg/dL (0.2-1.3); BLOOD UREA NITROGEN 8 mg/dL (7-20); CALCIUM 9.9 mg/dL (8.4-10.2); CARBON DIOXIDE 25 mmol/L (22-30); CHLORIDE 102 mmol/L (98-107); GLUCOSE 92 mg/dL (75-110); POTASSIUM 3.7 mmol/L (3.6-5.0); TOTAL PROTEIN 7.7 g/dL (6.3-8.2)
[2019-05-30] MEDS ORDERED: DIPHENHYDRAMINE HCL 50 MG/ML VIAL IV ONE (14:52)
--- NOTE | 2019-05-30 14:53 | ER Document Report ---
ED GI/ - General Chief Complaint: Vomiting Stated Complaint: VOMITING Time Seen by Provider: 05/30/19 12:42 [facility] [NO [facility]AL MD] - Follow up as needed Mode of Arrival: Ambulatory Information source: Patient Notes: Patient presents G7, P1 10 weeks complaining of nausea and vomiting for the past week. Patient reports some pelvic cramping for the past week. No urinary symptoms, no vaginal bleeding or discharge. TRAVEL OUTSIDE OF THE [place] IN LAST 30 DAYS: No - HPI Patient complains to provider of: Vomiting. No: Vaginal discharge, Vaginal pain Onset: Last week Timing/Duration: Persistent Quality of pain: Cramping Pain Level: 1 Location: Pelvis Vaginal bleeding (Compared to normal period): None Menstrual period history: Associated symptoms: Nausea, Vomiting. denies: Dysuria, Fever, Urinary hesitancy, Urinary frequency, Vaginal discharge Exacerbated by: Denies Relieved by: Denies Similar symptoms previously: Yes Recently seen / treated by doctor: No - Related Data Allergies/Adverse Reactions: No Known Allergies Allergy (Verified 01/19/19 12:23) Past Medical History - General Information source: Patient - Social History Smoking Status: Never Smoker Frequency of alcohol use: None Drug Abuse: None Occupation: Self-employed Lives with: Family Family History: Reviewed & Not Pertinent, Malignancy - Ovarian and breast cancer Patient has suicidal ideation: No Patient has homicidal ideation: No - Medical History Medical History: Negative Renal/ Medical History: Reports: Hx Ovarian Cysts. Denies: Hx Peritoneal Dialysis Past Surgical History: Reports: Hx Section - Immunizations Immunizations up to date: Yes Hx Diphtheria, Pertussis, Tetanus Vaccination: Yes Review of Systems - Review of Systems Constitutional: No symptoms reported. denies: Fever EENT: No symptoms reported Cardiovascular: No symptoms reported. denies: Chest pain Respiratory: No symptoms reported. denies: Cough Gastrointestinal: Abdominal pain, Nausea, Vomiting. denies: Diarrhea Genitourinary: No symptoms reported. denies: Dysuria Female Genitourinary: . denies: Vaginal discharge, Vaginal bleeding Musculoskeletal: No symptoms reported. denies: Back pain Skin: No symptoms reported Hematologic/Lymphatic: No symptoms reported Neurological/Psychological: No symptoms reported Physical Exam - Vital signs Vitals: Temp Pulse BP Pulse Ox 97.7 F 69 128/51 H 100 05/30/19 12:36 11/18/19 12:36 05/30/19 12:36 05/30/19 12:36 - General General appearance: Appears well, Alert In distress: None - HEENT Head: Normocephalic, Atraumatic Eyes: Normal Conjunctiva: Normal Nasal: Normal Mouth/Lips: Normal Mucous membranes: Normal Neck: Normal - Respiratory Respiratory status: No respiratory distress Chest status: Nontender Breath sounds: Normal. No: Rales, Rhonchi, Stridor, Wheezing Chest palpation: Normal - Cardiovascular Rhythm: Regular Heart sounds: S1 appreciated, S2 appreciated - Abdominal Inspection: Normal Distension: No distension Bowel sounds: Normal Tenderness: Tender - lower pelvic Organomegaly: No organomegaly - Back Back: Normal, Nontender. No: CVA tenderness - Extremities General upper extremity: Normal inspection, Normal strength General lower extremity: Normal inspection, Normal strength - Neurological Neuro grossly intact: Yes Cognition: Normal Joss Coma Scale Eye Opening: Spontaneous Joss Coma Scale Verbal: Oriented Blanchard Coma Scale Motor: Obeys Commands Joss Coma Scale Total: 15 - Psychological Associated symptoms: Normal affect, Normal mood - Skin Skin Temperature: Warm Skin Moisture: Dry Skin Color: Normal Course - Re-evaluation Re-evalutation: 05/30/19 15:55 Patient reports vomiting x1 episode while in the room after receiving the Benadryl. Patient declines needing additional medication at this time. Discussed with patient results of ultrasound and laboratory work-up. Discussed risk versus benefit for the use of Zofran at this time. Patient declines Zofran. Discussed with the patient taking Unisom and B6 [id number] as a preventative for nausea. - Vital Signs Vital signs: Temp Pulse Resp BP Pulse Ox 97.9 F 69 16 106/58 L 100 05/30/19 17:03 05/30/19 12:36 05/30/19 17:03 05/30/19 17:03 05/30/19 17:03 - Laboratory Result Diagrams: 05/30/19 13:26 05/30/19 13:26 Laboratory results interpreted by me: 05/30/19 05/30/19 05/30/19 13:26 13:26 13:26 WBC 12.3 H Absolute Neuts (auto) 9.2 H Alkaline Phosphatase 36 L Beta HCG, Quant 757836.00 H Urine Protein 30 H Urine Ketones 80 H Urine Blood SMALL H 05/30/19 23:11 Labs- Entire Visit 05/30/19 05/30/19 05/30/19 13:26 13:26 13:26 WBC 12.3 H RBC 4.51 Hgb 14.0 Hct 40.0 MCV 89 MCH 31.0 MCHC 35.0 RDW 13.4 Plt Count 296 Lymph % (Auto) 18.5 [place] % (Auto) 4.2 Eos % (Auto) 2.0 Baso % (Auto) 0.3 Absolute Neuts (auto) 9.2 H Absolute Lymphs (auto) 2.3 Absolute Monos (auto) 0.5 Absolute Eos (auto) 0.3 Absolute Basos (auto) 0.0 Seg Neutrophils % 75.0 Sodium 137.7 Potassium 3.7 Chloride 102 Carbon Dioxide 25 Anion Gap 11 BUN 8 Creatinine 0.60 Est GFR ( Amer) > 60 Est GFR (MDRD) Non-Af > 60 Glucose 92 Calcium 9.9 Total Bilirubin 0.6 Direct Bilirubin 0.1 Neonat Total Bilirubin Not Reportable Neonat Direct Bilirubin Not Reportable Neonat Indirect Bili Not Reportable AST 22 ALT 13 Alkaline Phosphatase 36 L Total Protein 7.7 Albumin 4.7 Lipase 23.4 Beta HCG, Quant 861386.00 H Total Beta HCG POSITIVE Urine Color YELLOW Urine Appearance CLOUDY Urine pH 5.0 Ur Specific Harris 1.028 Urine Protein 30 H Urine Glucose (UA) NEGATIVE Urine Ketones 80 H Urine Blood SMALL H Urine Nitrite (Reflex) NEGATIVE Urine Bilirubin NEGATIVE Urine Urobilinogen NEGATIVE Leukocyte Esterase Rfl NEGATIVE Urine RBC (Auto) 2 Urine Bacteria (Auto) TRACE Urine WBC (Reflex) 7 Squamous Epi Cells Auto 29 Urine Mucus (Auto) MANY Urine Ascorbic Acid NEGATIVE Discharge - Discharge Clinical Impression: Vomiting during Condition: Stable Disposition: HOME, SELF-CARE Instructions: Antinausea Medication ([facility]), Intravenous (IV) Fluids ([facility]), Vomiting ([facility]) Additional Instructions: Return immediately for any new or worsening symptoms Followup with your CRM ADMINISTRATOR care provider, call tomorrow to make a followup appointment You can take [id number] Unisom and vitamin B6 to help as a preventative for nausea. Prescriptions: Promethazine HCl [Phenergan 25 mg Tablet] 25 mg PO Q6H PRN #12 tablet PRN Reason: Referrals: [facility] [NO LOCAL MD] - Follow up as needed
--- NOTE | 2019-05-30 15:36 | RADIOLOGY REPORT (SQ) ---
EXAM DESCRIPTION: U/S OB TRANSVAG W/DOPPLER COMPLETED DATE/TIME: 05/30/2019 2:48 pm REASON FOR STUDY: abd pain; 10 weeks COMPARISON: None. TECHNIQUE: Transvaginal static and realtime grayscale images acquired of the pelvis. Additional alvarado cted spectral and color Doppler images recorded. All images stored on PACs. bHCG: Not applicable. CLINICAL DATES: LMP 03/11/2019. 11 weeks 3 days LIMITATIONS: None. FINDINGS: FETUS: Single Living intrauterine . ULTRASOUND EGA: 8 weeks 6 days ULTRASOUND RITA: 01/03/2020 EFW: Not applicable less than 20 weeks. CRL: 2.2 cm. FHR: 168 beats per minute. SURVEY: Too early to assess. AMNIOTIC FLUID: Adequate amount. PLACENTA: Not yet developed due to early gestation. SUBCHORIONIC BLEED: No SIZE OF BLEED: Not applicable. UTERUS: No masses. No anomalies. CERVICAL LENGTH: 5.4 cm. Closed. RIGHT ADNEXA: Ovary not seen. No adnexal free fluid. No adnexal masses. LEFT ADNEXA: Ovary not seen. No adnexal free fluid. No adnexal masses. FREE FLUID: None. OTHER: No other significant finding. IMPRESSION: LIVING INTRAUTERINE . EGA 8 weeks 6 days. Trimester of : First trimester - 0 to 13 weeks. TECHNICAL DOCUMENTATION: JOB ID: [id number]- All Rights Reserved Reading location - IP/workstation name: [email or web address]
[2019-05-30 17:04] VITALS: BP 106/58
== END 2019-05-30 17:07 | disposition home or self-care (01) ==
LOC: ER 12:32
DX: O21.9 Vomiting of pregnancy, unspecified (principal); Z3A.10 10 weeks gestation of pregnancy
CPT/HCPCS: 99284; 96361; 96374; 36415; 84702; 83690; 85025; 80053; 81001; 76817; 93976; J1200; J3490; J7030

== ENCOUNTER 2019-11-18 12:47 | Emergency (ER) | payer MEDICAID ==
[2019-11-18 13:27] LABS: ABSOLUTE EOSINOPHILS # (AUTO) 0.2 10^3/uL (0.0-0.6); ABSOLUTE MONOCYTES (AUTO) 0.5 10^3/uL (0.1-1.4); ABSOLUTE NEUT (AUTO) 6.9 10^3/uL (1.7-8.2); BASOPHILS % (AUTO) 0.3 % (0-2); HEMATOCRIT 30.8 % (36.0-47.0); LYMPHOCYTES % (AUTO) 20.4 % (13-45); MEAN CORPUSCULAR HEMOGLOBIN 30.5 pg (27.0-33.4); MEAN CORPUSCULAR HGB CONC 35.8 g/dL (32.0-36.0); MEAN CORPUSCULAR VOLUME 85 fl (80-97); PLATELET COUNT 258 10^3/uL (150-450); RED BLOOD COUNT 3.61 10^6/uL (3.72-5.28); RED CELL DISTRIBUTION WIDTH 14.1 % (11.5-14.0); SEGMENTED NEUTROPHILS % (AUTO) 72.3 % (42-78); TOTAL CELLS COUNTED % (AUTO) 100 %; WHITE BLOOD COUNT 9.6 10^3/uL (4.0-10.5)
--- NOTE | 2019-11-18 13:45 | ER Document Report ---
ED General - General Chief Complaint: Abnormal Lab Results Stated Complaint: ABNORMAL LABS Time Seen by Provider: 11/18/19 12:55 Mode of Arrival: Ambulatory Information source: Patient Notes: 29-year-old 33 to 36-week female 7 para 1 presents to the emergency room after being told by her TOWBOAT OPERATOR yesterday that her potassium was 2.4. Patient states she had issues with her potassium during her first that went to full-term in February 2015. States they told her yesterday she was between 33 and 36 weeks . Unknown actual dates due to unknown last test. Patient states that she was going to [facility] for her first 20 weeks of and then transferred over to [facility] who she saw yesterday. States by her initial ultrasound she should be 36 weeks. States she is having an ultrasound next week for dating. She denies any symptoms. No shortness of breath, no cough no fevers. No pelvic pain. No vaginal discharge, no vaginal bleeding. No tachycardia. Patient states she did travel to [facility] yesterday. Other than that has had no distant travel. No ill contacts. No COVID-19 exposure. TRAVEL OUTSIDE OF THE [place] IN LAST 30 DAYS: No - Related Data Allergies/Adverse Reactions: No Known Allergies Allergy (Verified 11/18/19 13:05) Past Medical History - General Information source: Parent - Social History Smoking Status: Never Smoker Chew tobacco use (# tins/day): No Frequency of alcohol use: None Drug Abuse: None Lives with: Family Family History: Reviewed & Not Pertinent, Malignancy - Ovarian and breast cancer Patient has homicidal ideation: No Renal/ Medical History: Reports: Hx Ovarian Cysts. Denies: Hx Peritoneal Dialysis Past Surgical History: Reports: Hx Section - Immunizations Immunizations up to date: Yes Hx Diphtheria, Pertussis, Tetanus Vaccination: Yes Review of Systems - Review of Systems Constitutional: No symptoms reported EENT: No symptoms reported Cardiovascular: No symptoms reported Respiratory: No symptoms reported Genitourinary: No symptoms reported Female Genitourinary: Neurological/Psychological: No symptoms reported -: Yes All other systems reviewed and negative Physical Exam - Vital signs Vitals: Temp 98.6 F 11/18/19 13:06 - General General appearance: Appears well, Alert In distress: None - HEENT Head: Normocephalic, Atraumatic Eyes: Normal Pupils: PERRL - Respiratory Respiratory status: No respiratory distress Chest status: Nontender Breath sounds: Normal Chest palpation: Normal - Cardiovascular Rhythm: Regular Heart sounds: Normal auscultation Murmur: No - Abdominal Inspection: Gravid female Bowel sounds: Normal Tenderness: Nontender Organomegaly: No organomegaly - Neurological Neuro grossly intact: Yes Cognition: Normal Orientation: AAOx4 [place] Coma Scale Eye Opening: Spontaneous [place] Coma Scale Verbal: Oriented [place] Coma Scale Motor: Obeys Commands [place] Coma Scale Total: 15 Speech: Normal Motor strength normal: LUE, RUE, LLE, RLE Sensory: Normal - Skin Skin Temperature: Warm Skin Moisture: Dry Skin Color: Normal Course - Re-evaluation Re-evalutation: 11/18/19 16:19 Patient is resting comfortably she is asymptomatic. No chest pain, no shortness of breath, no tachycardia. No pelvic pain, no vaginal bleeding. All lab results were reviewed with patient. Discussed her potassium level of 2.5 mag of 1.3. Case was staffed by ED physician Dr. Chan patient was given p.o. potassium and p.o. magnesium. She will be discharged home with both p.o. potassium and p.o. magnesium as discussed. She is to call her TOWBOAT OPERATOR for a repeat lab in 4 days. She was given strict return to the emergency room guidelines. Return for any new or worsening symptoms. All questions were answered. Patient verbalized understanding and agrees with plan of care. 11/18/19 23:49 - Vital Signs Vital signs: Temp Pulse Resp BP Pulse Ox 97.9 F 71 16 135/79 H 100 11/18/19 16:38 11/18/19 16:38 11/18/19 16:38 11/18/19 16:38 11/18/19 16:38 - Laboratory Result Diagrams: 11/18/19 12:51 11/18/19 12:51 Laboratory results interpreted by me: 11/18/19 11/18/19 11/18/19 12:51 12:51 12:51 RBC 3.61 L Hgb 11.0 L Hct 30.8 L RDW 14.1 H Sodium 134.7 L Potassium 2.5 L* BUN 3 L Magnesium 1.3 L Total Protein 6.2 L Beta HCG, Quant 73465.00 H Discharge - Discharge Clinical Impression: Hypokalemia, Hypomagnesemia Condition: Stable Disposition: HOME, SELF-CARE Instructions: Hypokalemia ([facility]) Additional Instructions: Take magnesium and potassium daily as prescribed. Outpatient follow-up with your OB for repeat labs in 4 days. Return for any new or worsening symptoms. Prescriptions: Magnesium Oxide [Mag-Ox 400 mg Tablet] 800 mg PO DAILY 4 Days #8 tablet Potassium Chloride 40 meq PO DAILY 4 Days #60 ml
[2019-11-18 13:49] LABS: ALBUMIN 3.5 g/dL (3.5-5.0); ALKALINE PHOSPHATASE 61 U/L (38-126); ANION GAP 7 (5-19); ASPARTATE AMINO TRANSFERASE 28 U/L (14-36); BILIRUBIN,TOTAL 0.4 mg/dL (0.2-1.3); BLOOD UREA NITROGEN 3 mg/dL (7-20); CALCIUM 9.4 mg/dL (8.4-10.2); CARBON DIOXIDE 27 mmol/L (22-30); CHLORIDE 101 mmol/L (98-107); GLUCOSE 101 mg/dL (75-110); TOTAL PROTEIN 6.2 g/dL (6.3-8.2)
[2019-11-18 14:16] LABS: POTASSIUM 2.5 mmol/L (3.6-5.0)
[2019-11-18] MEDS ORDERED: POTASSIUM CHLORIDE 10 MEQ TABLET.ER PO ONE (15:15)
[2019-11-18] MEDS ORDERED: POTASSIUM CHLORIDE 20 MEQ PACKET PO ONE (15:15)
[2019-11-18] MEDS ORDERED: MAGNESIUM OXIDE 400 MG TABLET PO ONE (15:52)
[2019-11-18 16:39] VITALS: BP 135/79
== END 2019-11-18 16:54 | disposition home or self-care (01) ==
LOC: ER 12:47
DX: O26.893 Other specified pregnancy related conditions, third trimester (principal); E87.6 Hypokalemia; E83.42 Hypomagnesemia; Z3A.36 36 weeks gestation of pregnancy
CPT/HCPCS: 99283; 36415; 84702; 83690; 83735; 85025; 80053; J3490 ×2

== ENCOUNTER 2019-12-09 08:31 | Emergency (ER) | payer MEDICAID ==
--- NOTE | 2019-12-09 08:58 | ER Document Report ---
ED Medical Screen (RME) - General Chief Complaint: Abnormal Lab Results Stated Complaint: ABNORMAL LABS/POTASSIIM Time Seen by Provider: 12/09/19 08:55 Mode of Arrival: Ambulatory Information source: Patient Notes: 29-year-old female presented to ED for low potassium. Her BUSINESS CHANGE MANAGER sent her here because her potassium is still too low and needs IV potassium. Will get potassium and CBC and then be evaluated by another provider. She is 37 weeks 7 para 1. She states she has been hypo-kalemia her whole . Patient is alert oriented respirations regular and unlabored speaking in full sentences. She states she is not having any pain or cramping at this time. I have greeted and performed a rapid initial assessment of this patient. A comprehensive ED assessment and evaluation of the patient, analysis of test results and completion of medical decision making process will be conducted by an additional ED providers. TRAVEL OUTSIDE OF THE [place] IN LAST 30 DAYS: No - Related Data Allergies/Adverse Reactions: No Known Allergies Allergy (Verified 12/09/19 08:47) Past Medical History - Social History Chew tobacco use (# tins/day): No Frequency of alcohol use: None Drug Abuse: None Renal/ Medical History: Reports: Hx Ovarian Cysts. Denies: Hx Peritoneal Dialysis Past Surgical History: Reports: Hx Section - Immunizations Immunizations up to date: Yes Hx Diphtheria, Pertussis, Tetanus Vaccination: Yes Physical Exam - Vital signs Vitals: Temp Pulse Resp BP Pulse Ox 98.5 F 73 18 140/78 H 100 12/09/19 08:36 12/09/19 08:36 12/09/19 08:36 12/09/19 08:36 12/09/19 08:36 Course - Vital Signs Vital signs: Temp Pulse Resp BP Pulse Ox 98.5 F 73 18 140/78 H 100 12/09/19 08:49 12/09/19 08:36 12/09/19 08:36 12/09/19 08:36 12/09/19 08:36
[2019-12-09 09:36] LABS: ABSOLUTE EOSINOPHILS # (AUTO) 0.1 10^3/uL (0.0-0.6); ABSOLUTE MONOCYTES (AUTO) 0.4 10^3/uL (0.1-1.4); ABSOLUTE NEUT (AUTO) 6.8 10^3/uL (1.7-8.2); BASOPHILS % (AUTO) 0.2 % (0-2); EOSINOPHILS % (AUTO) 1.3 % (0-6); HEMATOCRIT 30.4 % (36.0-47.0); HEMOGLOBIN 10.8 g/dL (12.0-15.5); LYMPHOCYTES % (AUTO) 21.4 % (13-45); MEAN CORPUSCULAR HEMOGLOBIN 30.3 pg (27.0-33.4); MEAN CORPUSCULAR HGB CONC 35.3 g/dL (32.0-36.0); MEAN CORPUSCULAR VOLUME 86 fl (80-97); MONOCYTES % (AUTO) 4.7 % (3-13); PLATELET COUNT 231 10^3/uL (150-450); RED BLOOD COUNT 3.55 10^6/uL (3.72-5.28); RED CELL DISTRIBUTION WIDTH 14.4 % (11.5-14.0); SEGMENTED NEUTROPHILS % (AUTO) 72.4 % (42-78); TOTAL CELLS COUNTED % (AUTO) 100 %; WHITE BLOOD COUNT 9.5 10^3/uL (4.0-10.5)
[2019-12-09 09:51] LABS: ALBUMIN 3.4 g/dL (3.5-5.0); ALKALINE PHOSPHATASE 82 U/L (38-126); ANION GAP 7 (5-19); ASPARTATE AMINO TRANSFERASE 39 U/L (14-36); BILIRUBIN,TOTAL 0.5 mg/dL (0.2-1.3); BLOOD UREA NITROGEN 3 mg/dL (7-20); CALCIUM 9.8 mg/dL (8.4-10.2); CARBON DIOXIDE 26 mmol/L (22-30); CHLORIDE 103 mmol/L (98-107); GLUCOSE 92 mg/dL (75-110); TOTAL PROTEIN 6.1 g/dL (6.3-8.2)
[2019-12-09] MEDS ORDERED: POTASSIUM CHLORIDE 10 MEQ TABLET.ER PO ONE ×2 (10:35→14:49)
[2019-12-09] MEDS ORDERED: POTASSI CL 20 MEQ/50 ML RIDER 20 MEQ/50 ML RTUPB IV ONE (10:36)
[2019-12-09] MEDS ORDERED: NORMAL SALINE 1000 ML 1,000 ML IV ONE (10:36)
--- NOTE | 2019-12-09 10:43 | ER Document Report ---
ED General - General Chief Complaint: Abnormal Lab Results Stated Complaint: ABNORMAL LABS/POTASSIIM Time Seen by Provider: 12/09/19 08:55 Mode of Arrival: Ambulatory TRAVEL OUTSIDE OF THE [place] IN LAST 30 DAYS: No - HPI Notes: Chief complaint: Low potassium HPI: 29-year-old female 7 para 1 AB 5 currently at 37 weeks EGA and scheduled for elective repeat 4 days from now. She has had problems with recurrent vomiting during and has been followed closely by ENGINEERING AGENT group at [facility]. They have been supplementing potassium and magnesium orally. She had labs checked in their facility yesterday and was contacted this morning and told that her potassium is around 3 and that she should come to the ER to get an IV potassium infusion so that her potassium can be normalized before her scheduled surgery on Thursday. Vomited twice this morning but says it this is "typical" and she feels she is doing quite well with otherwise. She denies any uterine contractions or vaginal discharge/bleeding. She denies any back pain, fever, or chills. Review of her meds shows that she is currently taking extended release KCl 20 mEq twice daily and mag oxide 400 mg twice daily. - Related Data Allergies/Adverse Reactions: No Known Allergies Allergy (Verified 12/09/19 08:47) Past Medical History - General Information source: Patient - Social History Smoking Status: Never Smoker Chew tobacco use (# tins/day): No Frequency of alcohol use: None Drug Abuse: None Family History: Reviewed & Not Pertinent, Malignancy - Ovarian and breast cancer Patient has homicidal ideation: No Renal/ Medical History: Reports: Hx Ovarian Cysts. Denies: Hx Peritoneal Dialysis Past Surgical History: Reports: Hx Section - Immunizations Immunizations up to date: Yes Hx Diphtheria, Pertussis, Tetanus Vaccination: Yes Review of Systems - Review of Systems Notes: Constitutional: Negative for fever. HENT: Negative for sore throat. Eyes: Negative for visual changes. Cardiovascular: Negative for chest pain. Respiratory: Negative for shortness of breath. Gastrointestinal: As per HPI. Genitourinary: Negative for dysuria. Musculoskeletal: Negative for back pain. Skin: Negative for rash. Neurological: Negative for headaches, weakness or numbness. 10 point ROS negative except as marked above and in HPI. Physical Exam - Vital signs Vitals: Temp Pulse Resp BP Pulse Ox 98.5 F 73 18 140/78 H 100 12/09/19 08:36 12/09/19 08:36 12/09/19 08:36 12/09/19 08:36 12/09/19 08:36 - Notes Notes: GENERAL: Well-developed well-nourished appearing in no acute distress. SKIN: Good turgor no rashes. HEAD: Normocephalic atraumatic. EYES: PERRLA. EOMI. Conjunctivae and sclerae clear. EARS: CANALS AND TMS CLEAR. NOSE: CLEAR. MOUTH: Moist mucosa. Good dentition. No stridor or edema. No drooling. NECK: Supple. No masses or thyromegaly. No adenopathy. Carotids 2+ without bruits. No JVD. BACK: Symmetrical without tenderness. CHEST: Respirations unlabored. Breath sounds clear and symmetrical. HEART: Regular rhythm. No murmur gallop or rub. ABDOMEN: Gravid uterus consistent with dates. Positive FHT 140 by handheld Doppler. movement is appreciated. Soft nontender without masses, organomegaly or rebound. Bowel sounds normally active. No bruits. GENITALIA: Deferred. EXTREMITIES: No edema. No calf tenderness. Cap refill less than 1.5 seconds. Dorsalis pedis and posterior tibial pulses 3+ and symmetrical. NEUROLOGICAL: GCS 15. Alert and oriented x3. Normal gait. Fluent speech. Cranial nerves II through XII intact. Sensorimotor and cerebellar normal. Normal tone. PSYCHIATRIC: Appropriate affect. Course - Vital Signs Vital signs: Temp Pulse Resp BP Pulse Ox 98.7 F 73 21 H 145/90 H 99 12/09/19 10:01 12/09/19 08:36 12/09/19 10:01 12/09/19 10:01 12/09/19 10:01 - Laboratory Result Diagrams: 12/09/19 09:15 12/09/19 09:15 Laboratory results interpreted by me: 12/09/19 12/09/19 12/09/19 09:15 09:15 09:15 RBC 3.55 L Hgb 10.8 L Hct 30.4 L RDW 14.4 H Sodium 136.4 L Potassium 3.0 L* BUN 3 L Magnesium 1.4 L AST 39 H Total Protein 6.1 L Albumin 3.4 L Discharge - Discharge Clinical Impression: Hypokalemia, Hypomagnesemia, IUP at 37 weeks EGA Condition: Stable Disposition: HOME, SELF-CARE Additional Instructions: Continue current medications and follow-up with your ENGINEERING AGENT physician in [facility] as previously scheduled.
[2019-12-09] MEDS ORDERED: METOCLOPRAMIDE HCL INJ/PF 10 MG/2 ML SDV IV ONE (12:11)
[2019-12-09] MEDS: MAGNESIUM SULFATE/D5W 1 GM/100 ML RTUPB IV SCH ×2 (13:37→14:37)
[2019-12-09] MEDS ORDERED: POTASSI CL 20 MEQ/50 ML RIDER 20 MEQ/50 ML RTUPB IV SCH (15:00)
[2019-12-09 16:43] VITALS: BP 149/97
== END 2019-12-09 16:41 | disposition home or self-care (01) ==
LOC: ER 08:31
DX: O26.893 Other specified pregnancy related conditions, third trimester (principal); E87.6 Hypokalemia; E83.42 Hypomagnesemia; O21.9 Vomiting of pregnancy, unspecified; Z3A.37 37 weeks gestation of pregnancy
CPT/HCPCS: 99283; 96361; 96375; 96365; 96366; 96367; 36415; 83735; 84132; 85025; 80053; J2765; J3475; J3480; J7030